=== PATIENT | male | born 1990 | race Caucasian/White ===

== ENCOUNTER 2016-10-29 09:35 | Emergency (ER) | payer MEDICAID ==
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
== END 2016-10-29 10:05 | disposition home or self-care (01) ==
LOC: ER 09:35
DX: J02.9 Acute pharyngitis, unspecified (principal); J40 Bronchitis, not specified as acute or chronic; H10.9 Unspecified conjunctivitis; J06.9 Acute upper respiratory infection, unspecified; F17.200 Nicotine dependence, unspecified, uncomplicated
CPT/HCPCS: Z7502